=== PATIENT | male | born 1995 | race Caucasian/White ===

== ENCOUNTER 2020-06-23 04:30 | Emergency (ER) | payer BC, SELFPAY ==
[2020-06-23] VITALS (7 sets, daily range): BP systolic 127–141; BP diastolic 53–80; PULSE 71–93; RESP 15–20; TEMP 36.6; O2SAT 95–98
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
--- NOTE | 2020-06-23 04:52 | PC.NURSE ---
Patient placed in C-collar.
[2020-06-23] MEDS: MORPHINE SULFATE 4 MG/ML INJ IV PUSH (05:09)
[2020-06-23] MEDS: ONDANSETRON INJ 4 MG/2 ML VIAL IV PUSH (05:10)
[2020-06-23] MEDS: SODIUM CHLORIDE 0.9% IV 1,000 ML 999 ML IV CONT (05:14)
--- NOTE | 2020-06-23 05:21 | PC.NURSE ---
Patient reports he feels very itchy after the dose of Morphine. EDP Josef notified. Per EDP Josef verbal order read-back, give 25mg Benadryl IVP.
[2020-06-23] MEDS: diphenhydrAMINE HCl INJ 50 MG/ML VIAL 25 MG IV PUSH (05:24)
[2020-06-23 05:28] LABS: Basophils Percent Auto 0.4 % (0.2-1.2); Hematocrit 47.5 % (42.0-52.0); Hemoglobin 16.3 g/dL (14.0-18.0); Immature Granulocyte Absolute 0.04 K/mm3 (0.00-0.031); Immature Granulocyte Percent A 0.4 % (0-0.5); Lymphocytes Absolute Auto 2.64 K/mm3 (0.9-3.2); Lymphocytes Percent Auto 24.7 % (18.3-44.2); Mean Corpuscular HGB Conc 34.3 g/dl (32-36); Mean Corpuscular Hemoglobin 29.5 pg (26-34); Mean Corpuscular Volume 85.9 fl (80-100); Mean Platelet Volume 11.3 fl (7.4-10.4); Monocytes Absolute Auto 0.8 K/mm3 (0.1-0.6); Monocytes Percent Auto 7.4 % (2.6-8.5); Neutrophils Absolute Auto 7.2 K/mm3 (1.3-6.7); Neutrophils Percent Auto 67.1 % (45.5-73.1); Platelet Count Result 191 k/mm3 (150-375); Red Blood Count 5.53 M/mm3 (4.6-6.20); Red Cell Distribution Width 13.2 % (11.5-14.5); White Blood Count 10.7 K/mm3 (4.5-10.0)
--- NOTE | 2020-06-23 05:29 | PC.NURSE ---
Patient unable to void at this time. Patient given urinal to attempt to go to the bathroom.
[2020-06-23 05:39] LABS: Ethanol 87 mg/dL (<10)
[2020-06-23 05:43] LABS: Alanine Aminotransferase 41 U/L (4-50); Albumin Level 4.9 g/dL (3.5-5.1); Alkaline Phosphatase 76 U/L (38-126); Anion Gap 11 mmol/L (8-16); Aspartate Amino Transferase 41 U/L (17-59); Bilirubin,Total 0.5 mg/dL (0.2-1.3); Blood Urea Nitrogen 10 mg/dL (9-20); Calcium 8.9 mg/dL (8.4-10.2); Carbon Dioxide 23 mmol/L (22-30); Chloride 105 mmol/L (98-107); Estimated CRCL calculation 132 ml/min; Estimated Glomerular Filt Rate > 60; Glucose 96 mg/dL (75-110); Lipase 72 U/L (23-300); Potassium 3.9 mmol/L (3.4-5.0); Sodium 139 mmol/L (137-145)
--- NOTE | 2020-06-23 06:01 | PC.NURSE ---
Patient to radiology.
[2020-06-23 08:02] LABS: Add Urine Microscopic? NO; Appearance Urine Clear (Clear); Bilirubin Urine Negative (Negative); Blood Urine Negative (Negative); Color Urine Colorless (Yellow); Glucose Urine UA Negative (Negative); Ketones Urine Negative (Negative); Leukocyte Esterase Ur Negative LEU/UL (Negative); Nitrate Urine Negative (Negative); Protein Urine Negative (Negative); Specific Grav Ur 1.013 (1.001-1.035); Urobilinogen Urine Negative mg/dL (<2.0)
== END 2020-06-23 09:17 | disposition home or self-care (01) ==
PROVIDERS: Emergency Provider Emergency Medicine; PCP Family Medicine
DX: S70.02XA Contusion of left hip, initial encounter (principal); V28.4XXA Motorcycle driver injured in noncollision transport accident in traffic accident, initial encounter; M47.814 Spondylosis without myelopathy or radiculopathy, thoracic region; M47.816 Spondylosis without myelopathy or radiculopathy, lumbar region
CPT/HCPCS: 36415; 70450; 71045; 71260; 72125; 72128; 72131; 73030; 73502; 74177; 80053; 80307; 81003; 83690; 85025; 96361; 96374; 96375; 99284; J0131; J1200; J2270; J2405; J7030; L0140; Q9967